=== PATIENT | male | born 1985 | race Caucasian/White ===

== ENCOUNTER → 2020-03-30 | Outpatient (CLI) | payer SELFPAY | PROVIDERS: Referring Provider Internal Medicine; Visit Provider Internal Medicine | DX: Z23 Encounter for immunization (principal) | CPT/HCPCS: 90471; 90686 ==

== ENCOUNTER → 2020-07-06 08:01 | Outpatient (CLI) | payer OTHER, SELFPAY ==
[2020-07-06] MEDS: COVID-19 VACC(MODERNA-1)/PF 100 MCG/0.5 ML VIAL IM (08:08)
== END ==
PROVIDERS: Visit Provider Internal Medicine
DX: Z23 Encounter for immunization (principal)
CPT/HCPCS: 0011A; 91301

== ENCOUNTER → 2020-07-28 12:08 | Outpatient (CLI) | payer OTHER, SELFPAY ==
[2020-07-28 12:34] LABS: COVID19 -Nasal RAPID Negative (Negative)
== END ==
PROVIDERS: Visit Provider Nurse Practitioner
DX: Z20.822 Contact with and (suspected) exposure to COVID-19 (principal)
CPT/HCPCS: 87635

== ENCOUNTER → 2020-08-02 08:01 | Outpatient (CLI) | payer OTHER, SELFPAY ==
[2020-08-02] MEDS: COVID-19 VACC #2, MRNA(MOD) 100 MCG/0.5 ML VIAL IM (08:04)
== END ==
PROVIDERS: Visit Provider Internal Medicine
DX: Z23 Encounter for immunization (principal)
CPT/HCPCS: 0012A; 91301

== ENCOUNTER → 2020-12-06 09:58 | Outpatient (CLI) | payer OTHER, SELFPAY ==
[2020-12-06 10:59] LABS: COVID19 -Nasal RAPID Negative (Negative)
== END ==
PROVIDERS: Visit Provider Student in an Organized Health Care Education/Training Program
DX: J34.89 Other specified disorders of nose and nasal sinuses (principal)
CPT/HCPCS: 87635

== ENCOUNTER → 2021-04-07 09:40 | Outpatient (CLI) | payer OTHER, SELFPAY ==
[2021-04-07 12:01] LABS: COVID19 -Nasal RAPID Negative (Negative)
== END ==
PROVIDERS: Visit Provider Nurse Practitioner
DX: Z20.822 Contact with and (suspected) exposure to COVID-19 (principal); J02.9 Acute pharyngitis, unspecified
CPT/HCPCS: 87635

== ENCOUNTER → 2021-04-12 | Outpatient (CLI) | payer OTHER, SELFPAY | PROVIDERS: Referring Provider Internal Medicine; Visit Provider Internal Medicine | DX: Z23 Encounter for immunization (principal) | CPT/HCPCS: 90471; 90686 ==

== ENCOUNTER → 2021-05-05 12:39 | Outpatient (CLI) | payer OTHER, SELFPAY ==
[2021-05-05] MEDS: COVID-19 VACC #3, MRNA(MOD) 50 MCG/0.25 ML VIAL IM (12:44)
== END ==
PROVIDERS: Visit Provider Internal Medicine
DX: Z23 Encounter for immunization (principal)
CPT/HCPCS: 0013A; 91301

== ENCOUNTER → 2021-11-13 11:24 | Outpatient (CLI) | payer OTHER, SELFPAY ==
[2021-11-13 11:53] LABS: COVID19 -Nasal RAPID Negative (Negative)
== END ==
PROVIDERS: Visit Provider Registered Nurse Diabetes Educator
DX: Z20.822 Contact with and (suspected) exposure to COVID-19 (principal)
CPT/HCPCS: 87635

== ENCOUNTER → 2022-05-17 11:16 | Outpatient (CLI) | payer OTHER, SELFPAY | PROVIDERS: Referring Provider Internal Medicine; Visit Provider Internal Medicine | DX: Z23 Encounter for immunization (principal) | CPT/HCPCS: 90471; 90686 ==

== ENCOUNTER → 2022-10-24 12:28 | Outpatient (CLI) | payer OTHER, SELFPAY ==
--- NOTE | 2022-10-24 | DI.US.S_ITS ---
PROCEDURE: US SCROTUM INDICATIONS: RIGHT SCROTAL LUMP; HEMATOSPERMIA TECHNIQUE: Real-time scanning was performed of the scrotum and testicles, with image documentation. Color and pulse Doppler interrogation was performed of both testicles. COMPARISON: None. FINDINGS: Right: Testicle is normal in size at 5.4 x 2.5 x 3.6 cm, and homogenous in echotexture. Epididymis is normal in overall size and morphology. Minimal hydrocele. No varicocele. Overlying scrotal skin is normal in thickness. Left: Testicle is normal in size at 4.9 x 2.2 x 3.3 cm, and homogeneous in echotexture. Epididymis is normal in overall size and morphology. No hydrocele or varicoceles. Overlying scrotal skin is normal in thickness. Doppler: Color and pulse Doppler demonstrate normal and symmetric arterial flow in both testicles. IMPRESSION: No acute scrotal abnormality. No acute sonographic explanation identified for hematospermia. Reported palpable lump is superior to the right scrotum and is not imaged. Dictated by: Leroy Spence M.D. on 10/24/2022 at 14:55 Approved by: Leroy Spence M.D. on 10/24/2022 at 14:57
== END ==
PROVIDERS: Referring Provider Nurse Practitioner; Visit Provider Nurse Practitioner
DX: N50.9 Disorder of male genital organs, unspecified (principal); R36.1 Hematospermia; R22.9 Localized swelling, mass and lump, unspecified
CPT/HCPCS: 76870

== ENCOUNTER 2023-04-02 09:31 | Day surgery (SDC) | payer OTHER, SELFPAY ==
[2023-03-27 16:00] VITALS: BMI 25.9
--- NOTE | 2023-04-02 | PATH_ITS ---
[facility] Accession Number: [id number] No. of containers..01 Tissue . 01 Material submitted: . LIPOMA - RIGHT EXCISION LESION/MASS . 01 Diagnosis: Right Lesion/Mass, Excisions: Consistent with fragments of angiolipoma. MRV 04/05/2023 1742 Local . 01 Electronically signed: . Jorje Peace MD, Dermatopathologist NPI- [id number] . 01 Gross description: . The specimen is received in formalin labeled with the patient's name, , and multiple lipomas, and consists of multiple fragments of yellow, lobulated soft tissue aggregating to 12.9 x 10.5 x 2.5 cm. Sectioning reveals a yellow, homogenous, unremarkable cut surface. [employer] sections are submitted in cassettes A1-A3. ([id number]) /BREANNA 04/04/2023 1014 Local . 01 Pathologist provided ICD-10: D17.9 . 01 CPT . 127517 Specimen Comment: A courtesy copy of this report has been sent to [phone] Performed at: 01 [facility] [address] [place] [id number] MD Hussein Hardy MD Phone: [phone]
[2023-04-02 09:59] VITALS: BMI 25.1
[2023-04-02 10:05] VITALS: BP 133/71; PULSE 51; RESP 18; TEMP 36.7; O2SAT 100
[2023-04-02] MEDS: LACTATED RINGERS 1,000 ML 42 ML IV (10:09)
--- NOTE | 2023-04-02 11:00 | PM.HP.1 ---
History of Present Illness History of Present Illness Date Patient Seen: 04/02/23 Time Patient Seen: 11:00 Chief complaint: Right Excision Lesion/Mass Narrative: Ignacio is a 38-year-old man who presents with multiple lipomas. The most bothersome lipomas are in his right flank and back hip. See the office note from January for details. [facility] Medical History (Updated 02/27/23 @ 14:50 by Tobin Zhang MD) Asthma Eosinophilic esophagitis HSV-1 (herpes simplex virus 1) infection Hyperlipemia Psoriasis Social History household members: spouse Smoking Status: Never smoker alcohol intake: current Meds Home Medications and Allergies Home Medications Medication Instructions Recorded Confirmed Type apremilast 30 mg tablet (Otezla) 30 mg PO DAILY 02/27/23 04/02/23 History fluticasone propionate 110 2 puff inhalation DAILY 02/27/23 04/02/23 History mcg/actuation HFA aerosol inhaler (Flovent HFA) pantoprazole 40 mg tablet,delayed 40 mg PO DAILY PRN Acid Reflux 02/27/23 04/02/23 History release (Protonix) rosuvastatin 5 mg tablet (Crestor) 5 mg PO DAILY 02/27/23 04/02/23 History valacyclovir 500 mg tablet 500 mg PO DAILY PRN Rash 02/27/23 04/02/23 History albuterol sulfate 90 mcg/actuation 1 inh inhalation QID PRN Dyspnea 04/02/23 04/02/23 History aerosol inhaler Allergies Allergy/AdvReac Type Severity Reaction Status Date / Time No Known Drug Allergies Allergy Verified 04/02/23 09:56 Exam Vital Signs (past 8 hours): - 04/02/23 10:05 Temperature 98.0 F Pulse Rate 51 L Respiratory Rate 18 Blood Pressure 133/71 Pulse Oximetry 100 Oxygen Delivery Method Room Air Oxygen Delivery Method Room Air Narrative Exam Narrative: Multiple lipomas in the right hip back and flank Assessment & Plan Assessment and plan (1) Lipomatosis: Status: Acute Plan We will proceed with excisional biopsies of multiple lipomas from the right flank back and hip in the OR with anesthesia.
--- NOTE | 2023-04-02 12:02 | SUR.OPER ---
Lateral on a quezada bag, head on pillow, gel axillary roll in place, bottom leg bent with gel pad under knee to foot, upper leg straight and supported with pillows. RIGHT arm supported by pillows and secured over bottom arm to padded arm board. RIGHT ARM PREPPED AND DRAPED IN FIELD. Safety belt at hip, tape over blanket lower legs.
[2023-04-02] MEDS: BUPIVACAINE 0.25% (PF) 30 ML, EPINEPHrine 0.15 MG INJ (12:09)
[2023-04-02 13:08] VITALS: BP 125/68; PULSE 65; RESP 11; TEMP 36.2; O2SAT 98
[2023-04-02 13:13] VITALS: BP 120/66; PULSE 62; RESP 12; O2SAT 98
--- NOTE | 2023-04-02 13:15 | P.OP_ITS ---
Operative Date/Time/Diagnoses Date of procedure: 04/02/23 Time of procedure: 13:16 Pre-op diagnosis: Lipomatosis Post-op diagnosis: same Procedure & Clinicians Procedure: Excisional biopsy of multiple right-sided lipomas Same procedure as scheduled: Yes Surgeon: Tobin Zhang Parachute Taper: Alcides Toledo Anesthesia Type: General Operative Notes Procedure in detail: The patient is a 38-year-old man with lipomatosis. He has had prior excisional biopsies of lipomas. He is consented for excision of multiple right flank and right-sided lipomas. The patient was brought to the operating room and general endotracheal anesthesia was induced. He was then positioned in the left lateral decubitus position with the right side up. The right flank, buttock and right forearm were prepped and draped in the usual fashion and a time-out was performed. We started with the largest, most bothersome mass which was a 7 cm x 5 cm x 4 cm mobile mass in the right mid flank. We made a 6 cm incision and found a lipoma like mass in the subcutaneous tissue. This was excised and 2 additional smaller lipoma-like masses were removed through the same incision. We then moved on to the right back and a 6 cm incision was made. We excised a 5 cm x 4 cm x 3 cm lipoma like mass. We removed 2 additional smaller lipomas through the same incision. We then performed a 3 cm incision of the back and removed a 3 cm lipoma-like mass. We made a 3 cm incision over the right gluteal mass and removed a 3 cm mass. We made another 3 cm incision near the gluteal fold and removed a 3 cm mass. We made a 3 cm incision along the right forearm and expressed a 3 cm lipoma like mass. All the tissue was sent together in formalin. We then closed all the incisions with multiple interrupted 3-0 Vicryl dermal sutures and running 4-0 Monocryl subcuticular closures. We then applied Steri-Strips and dressings. EBL: 10 mL Specimens: Multiple lipomas as detailed above. Post-operative Condition: stable Disposition: PACU
[2023-04-02 13:18] VITALS: BP 124/61; PULSE 60; RESP 12; O2SAT 99
[2023-04-02 13:30] VITALS: BP 123/63; PULSE 60; RESP 12; O2SAT 97
[2023-04-02] MEDS: OXYCODONE IR 5 MG TABLET PO (13:34)
[2023-04-02] MEDS: ONDANSETRON 4 MG/2 ML INJ IV (13:49)
== END 2023-04-02 14:10 | disposition home or self-care (01) ==
PROVIDERS: Referring Provider Surgery; Visit Provider Surgery
PROC: (CPT 21931; principal; 2023-04-02 10:45)
DX: D17.1 Benign lipomatous neoplasm of skin and subcutaneous tissue of trunk (principal)
CPT/HCPCS: 21931 ×3; J0171; J1100; J2250; J2405; J2704; J3010

== ENCOUNTER → 2023-04-06 08:03 | Outpatient (CLI) | payer OTHER, SELFPAY | PROVIDERS: PCP Nurse Practitioner; Referring Provider Family Medicine; Visit Provider Family Medicine | DX: Z23 Encounter for immunization (principal) | CPT/HCPCS: 90471; 90686 ==

== ENCOUNTER → 2023-07-03 14:34 | Outpatient (CLI) | payer OTHER, SELFPAY ==
[2023-07-03 16:40] LABS: Semen Sperm Prescence Post-Vas Absent (ABSENT)
== END ==
PROVIDERS: PCP Nurse Practitioner; Referring Provider Specialist; Visit Provider Specialist
DX: Z98.52 Vasectomy status (principal)
CPT/HCPCS: 89321

== ENCOUNTER → 2024-01-21 07:32 | Outpatient (CLI) | payer OTHER, SELFPAY ==
--- NOTE | 2024-01-21 07:34 | DI.RAD.S_ITS ---
PROCEDURE: XR ANKLE RT MIN 3V INDICATIONS: R ankle pain TECHNIQUE: 3 views of the ankle were acquired. COMPARISON: None. FINDINGS: Bones: No displaced fracture or dislocation. Soft tissues: Small hyperdensity projects over the posterolateral ankle skin. No suspicious calcifications elsewhere. Possible soft tissue swelling. IMPRESSION: No displaced fracture or dislocation. If there is high concern for further derangement, consider MRI evaluation. Dictated by: Leroy Spence M.D. on 01/21/2024 at 9:04 Approved by: Leroy Spence M.D. on 01/21/2024 at 9:05
== END ==
PROVIDERS: PCP Nurse Practitioner; Referring Provider Registered Nurse Diabetes Educator; Visit Provider Registered Nurse Diabetes Educator
DX: M25.571 Pain in right ankle and joints of right foot (principal)
CPT/HCPCS: 73610

== ENCOUNTER → 2024-01-27 10:16 | Outpatient (CLI) | payer OTHER, SELFPAY ==
--- NOTE | 2024-01-27 10:17 | DI.MRI.S_ITS ---
PROCEDURE: MR ANKLE RT WO CON INDICATIONS: RIGHT ANKLE INJURY TECHNIQUE: Noncontrast sagittal T1 spin echo and T2 fast spin echo with fat saturation, axial proton density fast spin echo and T2 fast spin echo with fat saturation, coronal T1 spin echo and T2 fast spin echo with fat saturation through the ankle/hindfoot. COMPARISON: None. FINDINGS: Image quality: Excellent Tendons: Mild tenosynovitis of the posterior tibialis and the flexor digitorum longus. The flexor hallucis longus is unremarkable. The extensor tendons are unremarkable. The peroneal tendons are unremarkable. Moderate tendinosis of the distal Achilles tendon, without tear. Ligaments: Full-thickness tear of the anterior tibiofibular ligament. The posterior tibiofibular ligament is intact. The anterior talofibular ligament is intact. The posterior talofibular ligament is intact. The calcaneofibular ligament is intact. The deep portion deltoid ligament is unremarkable. Sinus tarsi: No fibrosis. Plantar fascia: Mild thickening of the central cord, which can be seen the setting of plantar fasciitis. Muscles: Normal in signal. Bones: Nondisplaced fracture of the posterior malleolus, involving approximately 15 percent of the articular surface. Associated moderate marrow edema of the posterior malleolus. Mild marrow edema of the medial malleolus, likely representing mild marrow contusion. The talus dome is intact. Small tibiotalar effusion. Small amount of fluid within the posterior subtalar recess. IMPRESSION: 1. Moderate tendinosis of the distal Achilles tendon, without tear. 2. Full-thickness tear of the anterior tibiofibular ligament. 3. Findings suggestive of plantar fasciitis. 4. Nondisplaced fracture of the posterior malleolus, acute. 5. Mild marrow contusion of the medial malleolus. Dictated by: Mel Rahman M.D. on 01/27/2024 at 13:31 Approved by: Mel Rahman M.D. on 01/27/2024 at 13:39
== END ==
PROVIDERS: PCP Nurse Practitioner; Referring Provider Nurse Practitioner; Visit Provider Nurse Practitioner
DX: S93.431A Sprain of tibiofibular ligament of right ankle, initial encounter (principal); S82.891A Other fracture of right lower leg, initial encounter for closed fracture; S90.01XA Contusion of right ankle, initial encounter; M65.871 Other synovitis and tenosynovitis, right ankle and foot; M25.471 Effusion, right ankle; M25.571 Pain in right ankle and joints of right foot
CPT/HCPCS: 73721